=== PATIENT | male | born 1970 | race African-American/Black ===

== ENCOUNTER 2023-02-05 11:52 | Emergency (ER) | payer BC, MEDICAID ==
[~2023-02-05] VITALS: Ht 190.5 cm; Wt 109.0 kg
[~2023-02-05 11:52] MED LIST: ALBU18HF2 IH; APIX5TAB MT; BUDE6HFA INH; HYDR25TA PO; LOSA100T33 PO; METF500S9 PO
[2023-02-05 11:56] VITALS: BP 185/109; PULSE 115; RESP 16; TEMP 98.2; O2SAT 98
[2023-02-05] MEDS ORDERED: SODIUM CHLORIDE 0.9% 500 ML IV ONE (12:15)
[2023-02-05] MEDS ORDERED: ASPIRIN 325MG EC TABLET PO ONE (12:15)
[2023-02-05 12:53] LABS: BASOPHILS % 0.5 % (0.0-2.0); EOSINOPHILS % 1.6 % (0.0-5.0); HEMATOCRIT. 40.8 % (42.0-52.0); HEMOGLOBIN. 13.2 g/dL (14.0-18.0); LYMPHOCYTES % 39.3 % (20.0-50.0); MEAN CORPUSCULAR HEMOGLOBIN 28.8 pg (28.0-32.0); MEAN CORPUSCULAR HGB CONC 32.3 g/dL (31.0-37.0); MEAN PLATELET VOLUME 9.3 fl (7.4-10.4); MONOCYTES % 8.4 % (2.0-8.0); NEUTROPHILS % 50.2 % (40.0-76.0); PLATELET 289 x1000/uL (130-400); RED BLOOD CELL COUNT 4.59 mill/uL (4.7-6.1); RED CELL DISTRIBUTION WIDTH 12.4 % (11.6-14.6); WHITE BLOOD COUNT 9.8 x1000/uL (4.5-11.0)
[2023-02-05 12:57] LABS: ALANINE AMINOTRANSFERASE 48 IU/L (10-49); ALBUMIN 4.7 g/dL (3.2-4.8); ASPARTATE AMINOTRANSFERASE 40 IU/L (<34); BILIRUBIN TOTAL 0.5 mg/dL (0.1-1.0); CALCIUM 9.6 mg/dL (8.7-10.4); CARBON DIOXIDE 32 mEq/L (21-32); CHLORIDE 100 mEq/L (98-107); GLUCOSE 166 mg/dL (70-105); POTASSIUM 4.5 mEq/L (3.5-5.1); PROTEIN TOTAL 8.2 g/dL (6.0-8.3); SODIUM 138 mEq/L (136-145); UREA NITROGEN BLOOD 12 mg/dL (9-23)
[2023-02-05 13:11] LABS: TROPONIN I HIGH SENSITIVITY < 4 ng/L (3.0-53)
[2023-02-05 13:14] LABS: D-DIMER 0.34 mg/L FEU (<0.50); INR 1.1; PROTHROMBIN TIME 11.4 sec (9.6-11.0)
[2023-02-05 15:05] LABS: TROPONIN I HIGH SENSITIVITY < 4 ng/L (3.0-53)
[2023-02-05] MEDS ORDERED: ASPIRIN 325MG EC TABLET PO NR (16:00)
[2023-02-05 17:19] LABS: TROPONIN I HIGH SENSITIVITY < 4 ng/L (3.0-53)
[2023-02-05] MEDS ORDERED: IOHEXOL-350 100 ML BOTTLE ONE (20:40)
== END 2023-02-05 20:12 | disposition home or self-care (01) ==
LOC: ER 11:52
DX: R06.02 Shortness of breath (principal); J44.9 Chronic obstructive pulmonary disease, unspecified; I10 Essential (primary) hypertension; E11.9 Type 2 diabetes mellitus without complications; E78.00 Pure hypercholesterolemia, unspecified; Z86.711 Personal history of pulmonary embolism; Z79.01 Long term (current) use of anticoagulants
CPT/HCPCS: 80053; 83690; 85025; 85379; 85610; 84484; 36415; 71275; 93005; 96360; 99291; Q9967; Z7610